=== PATIENT | female | born 1960 | race Caucasian/White ===

== ENCOUNTER 2016-10-11 18:12 | Emergency (ER) | payer MEDICAID ==
[~2016-10-11] VITALS: Ht 152.4 cm; Wt 81.6 kg
[2016-10-11 18:20] VITALS: BP 158/92; PULSE 81; RESP 18; TEMP 97.2; O2SAT 97
--- NOTE | 2016-10-11 18:55 | NUR ---
Patient to ER [facility] to [facility] for evaluation. Side rails up. Report given to Lia KELLEY.
--- NOTE | 2016-10-11 19:06 | NUR ---
Pt came into the ER in stable condition. Pt c/o right big toe pain 01/31. Pt stated that she might have an ingrown toe nail. Pt stated that she does see a label stamper but was not able to get an appt for 6 wks. Pt is a pre diabetic. -sob -chest pain. No acute distress noted at this time, will continue to monitor
--- NOTE | 2016-10-11 19:06 | NUR ---
PATO Luis in hallway examining patient
[2016-10-11] MEDS ORDERED: LIDOCAINE 1% 10 MG/ML, 20 ML MDV INJ ONE (19:30)
[2016-10-11] MEDS ORDERED: BACITRACIN 1 GM OINT TP ONE ×2 (20:45→20:51)
[2016-10-11] MEDS ORDERED: IBUPROFEN 600 MG TABLET PO ONE (20:45)
[2016-10-11 21:13] VITALS: BP 158/92; PULSE 81; RESP 18; TEMP 97.2; O2SAT 97
--- NOTE | 2016-10-11 21:13 | NUR ---
Patient given written and verbal discharge instructions and verbalizes understanding. ER DIRECTOR OF EMERGENCY NURSING [facility]SON discussed with patient the results and treatment provided. Patient in stable condition. ID arm band removed. Rx of DOXYCYCLINE, BACITRACIN, MOTRIN 600 given. Patient educated on pain management and to follow up with PMD. Pain Scale 2/10. Opportunity for questions provided and answered.
== END 2016-10-11 21:13 | disposition home or self-care (01) ==
LOC: SED 18:12
DX: L03.031 Cellulitis of right toe (principal); I10 Essential (primary) hypertension; Z88.2 Allergy status to sulfonamides
CPT/HCPCS: 11750; 99284; J2001

== ENCOUNTER 2017-08-02 19:29 | Emergency (ER) | payer MEDICAID ==
[~2017-08-02] VITALS: Ht 144.8 cm; Wt 81.6 kg
[2017-08-02 19:40] VITALS: BP_SYST 162
--- NOTE | 2017-08-02 19:40 | NUR ---
Patient to ER bed 8 to gown for evaluation. Side rails up. Report given to Ct KELLYE.
--- NOTE | 2017-08-02 19:45 | NUR ---
Patient complaining of pelvic pain and dysuria for 2 days. Denies any fevers. Pain of 4/10. Denies any Nausea, Vomiting and Diarrhea. No other complaints/injuries per patient or as noted. Will continue to monitor.
--- NOTE | 2017-08-02 19:57 | NUR ---
LETICIA Dalal examining patient.
[2017-08-02 20:15] LABS: BILIRUBIN,URINE NEGATIVE (NEGATIVE); BLOOD, URINE 2+ (NEGATIVE); CLARITY/URINE CLEAR (CLEAR); COLOR,URINE YELLOW (YELLOW); GLUCOSE,URINE NEGATIVE (NEGATIVE); KETONES,URINE NEGATIVE (NEGATIVE); LEUKOCYTE ESTERASE ,URINE NEGATIVE (NEGATIVE); NITRITE, URINE NEGATIVE (NEGATIVE); PROTEIN URINE NEGATIVE (NEGATIVE); UROBILINOGEN,URINE 0.2 (0.2-1.0)
[2017-08-02 21:03] LABS: BACTERIA,URINE RARE /HPF (None Seen); WBC,URINE 0-3 /HPF (0-3)
[2017-08-02 21:22] VITALS: BP_SYST 149
--- NOTE | 2017-08-02 21:22 | NUR ---
Patient given written and verbal discharge instructions and verbalizes understanding. ER MD discussed with patient the results and treatment provided. Patient in stable condition. ID arm band removed. Rx of diflucan, macrobid, and nystatin cream given. Patient educated on pain management and to follow up with PMD. Pain Scale 0/10. Opportunity for questions provided and answered.
== END 2017-08-02 21:22 | disposition home or self-care (01) ==
LOC: SED 19:29
DX: N76.0 Acute vaginitis (principal); N39.0 Urinary tract infection, site not specified; I10 Essential (primary) hypertension
CPT/HCPCS: 81000-TC; 99283

== ENCOUNTER → 2018-04-11 | Emergency (ER) | payer MEDICAID ==
[~2018-04-11] VITALS: Ht 152.4 cm; Wt 81.6 kg
[2018-04-11 14:12] VITALS: BP_SYST 155
[2018-04-11 15:30] VITALS: BP_SYST 155
== END | disposition still patient (30) ==
LOC: SED 14:12
DX: H00.011 Hordeolum externum right upper eyelid (principal); I10 Essential (primary) hypertension; R73.03 Prediabetes
CPT/HCPCS: 99283

== ENCOUNTER 2019-03-29 01:16 | Emergency (ER) | payer MEDICAID ==
[~2019-03-29] VITALS: Ht 144.8 cm; Wt 83.9 kg
[2019-03-29 01:20] VITALS: BP_SYST 164
--- NOTE | 2019-03-29 01:30 | NUR ---
Patient to ER bed 6 to gown for evaluation. Side rails up. Report given to Thi KELLEY.
--- NOTE | 2019-03-29 01:40 | NUR ---
Patient AOx4, ambulatory, presents to ER with complaint of left lower leg pain 10/10 and localized rash x 2 days. Patient states rash has worsened the past day. Patient states she has been applying Hydrocortisone and alcohol to site but without relief. No other symptoms or complaints.
--- NOTE | 2019-03-29 01:56 | NUR ---
LETICIA Mondragon at bedside examining patient.
[2019-03-29] MEDS ORDERED: TRIAMCINOLONE ACETONIDE 40 MG/ML IM ONE (02:00)
[2019-03-29] MEDS ORDERED: DIPHENHYDRAMINE HCL/ZINC ACET 28.3 GM CREAM.GM. TP ONE (02:30)
[2019-03-29] MEDS ORDERED: IBUPROFEN 600 MG TABLET PO ONE (02:30)
--- NOTE | 2019-03-29 03:15 | NUR ---
Patient refused Motrin stating she took one before coming in to ED. Dr. Walsh made aware.
--- NOTE | 2019-03-29 03:16 | NUR ---
Pt states "why is this taking so long?" Pt continues to be irate and states, "You guys need to figure it out." We informed her that we do not carry that benadryl topical cream in this hospital. She continued to say "I find it hard to believe a hospital does not carry this." I informed her that we are a small hospital and we do not carry the medication. ER made aware.
--- NOTE | 2019-03-29 03:32 | NUR ---
Patient given written and verbal discharge instructions and verbalizes understanding. ER MD discussed with patient the results and treatment provided. Patient in stable condition. ID arm band removed. Rx of lidoderm patch,Benadryl given. Patient educated on pain management and to follow up with PMD. Pain Scale 7/10. Opportunity for questions provided and answered. Medication side effect fact sheet provided.
[2019-03-29 03:37] VITALS: BP_SYST 150
== END 2019-03-29 03:32 | disposition home or self-care (01) ==
LOC: SED 01:16
DX: L25.9 Unspecified contact dermatitis, unspecified cause (principal); I10 Essential (primary) hypertension
CPT/HCPCS: 99283; J3301